=== PATIENT | female | born 2000 | race American Indian/Alaskan Native ===

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

== ENCOUNTER 2019-01-05 20:38 | Emergency (ER) | payer OTHER ==
[2019-01-05 21:01] VITALS: BP 115/70; PULSE 80; TEMP 98.2; BMI 24.5
--- NOTE | 2019-01-05 21:40 | PDOC ---
History of Present Illness - General Chief Complaint: Cold Symptoms Stated Complaint: CHEST PAIN Time Seen by Provider: 01/05/19 21:34 - History of Present Illness Initial Comments: 01/05/19 21:38 [id number] female with cough 2 weeks without systemic symptoms she has a mild sore throat. Mild sore throat x 2 weeks Past History - Past Medical History Allergies/Adverse Reactions: Allergies Allergy/AdvReac Type Severity Reaction Status Date / Time No Known Allergies Allergy Verified 01/31/17 18:04 Home Medications: Ambulatory Orders Guaifenesin Dm [Mucinex Dm -] 1 tab PO BID #60 tab.[id number] 01/05/19 Anemia: No Asthma: No Cardiac Disorders: No COPD: No - Surgical History Abdominal Surgery: No Appendectomy: No Cholecystectomy: No Gastric Stapling: No GI Surgery: No - Reproductive History Therapeutic (s) & number: Yes (OCT 18, 2017) - Immunization History Immunization Up to Date: Yes - Suicide/Smoking/Psychosocial Hx Smoking Status: No Smoking History: Current every day smoker Have you smoked in the past 12 months: Yes Number of Cigarettes Smoked Daily: 4 Information on smoking cessation initiated: Yes 'Breaking Loose' booklet given: 11/30/17 Hx Alcohol Use: No Drug/Substance Use Hx: No Substance Use Type: None Review of Systems - Review of Systems Constitutional: No: Chills, Diaphoresis, Fever, Malaise, Night Sweats HEENTM: Yes: Throat Pain. No: Difficulty Swallowing Respiratory: Yes: Cough *Physical Exam - Vital Signs Last Vital Signs Temp Pulse Resp BP Pulse Ox 98.2 F 80 20 115/70 99 01/05/19 20:59 01/05/19 20:59 01/05/19 20:59 01/05/19 20:59 01/05/19 20:59 - Physical Exam Comments: 01/05/19 21:39 HEAD: NC/AT EYES: Conjuntiva clear Ears: Canals and TM's normal NOSE: No d/c THROAT: Moist mucous membrances, oral pharanx clear, uvula midline NECK: Supple without adenopathy CARDIAC: S1 S2 LUNGS: CTA Full and Equal breath sounds ABDOMEN: Soft NT ND MS: Full ROM in all joints without edema NEUROLOGIC: No gross sensory or motor deficits, NVID SKIN: Normal color and temperature no lesions or rashes Moderate Sedation - Procedure Monitoring Vital Signs: Procedure Monitoring Vital Signs Temperature 98.2 F 01/05/19 20:59 Pulse Rate 80 01/05/19 20:59 Respiratory Rate 20 01/05/19 20:59 Blood Pressure 115/70 01/05/19 20:59 O2 Sat by Pulse Oximetry (%) 99 01/05/19 20:59 *DC/Admit/Observation/Transfer Diagnosis at time of Disposition: Viral upper respiratory infection - Discharge Dispostion Disposition: HOME Condition at time of disposition: Stable Decision to Admit order: No - Referrals Referrals: King Francis MD [Primary Care Provider] - - Patient Instructions Printed Discharge Instructions: DI for Viral Upper Respiratory Infection -- Adult Additional Instructions: He may take Mucinex DM as directed. Follow-up your primary care physician in one to 2 days for further evaluation and treatment options and return to the emergency room should symptoms worsen or go unresolved. - Post Discharge Activity
== END 2019-01-05 21:56 | disposition home or self-care (01) ==
LOC: JERFT 20:38
DX: J06.9 Acute upper respiratory infection, unspecified (principal); B97.89 Other viral agents as the cause of diseases classified elsewhere
CPT/HCPCS: 99281-25

== ENCOUNTER 2019-05-02 18:40 | Emergency (ER) | payer OTHER ==
[2019-05-02 18:57] VITALS: BP 118/72; PULSE 92; TEMP 97.8; BMI 24.3
[2019-05-02] MEDS ORDERED: CEPHALEXIN MONOHYDRATE 500 MG CAPSULE (UD) PO ONE (19:38)
[2019-05-02] MEDS ORDERED: CEPHALEXIN MONOHYDRATE 500 MG CAPSULE (UD) ONE (19:39)
--- NOTE | 2019-05-03 02:32 | PDOC ---
Documentation entered by Hany Suárez SCRIBE, acting as scribe for Deepthi Estrada MD. Deepthi Estrada MD: This documentation has been prepared by the Jose Armando sotomayor Aiswarya, SCRIBE, under my direction and personally reviewed by me in its entirety. I confirm that the documentation accurately reflects all work, treatment, procedures, and medical decision making performed by me. History of Present Illness - General Chief Complaint: Wound Stated Complaint: RT LEG WOUND History Source: Patient Exam Limitations: No Limitations - History of Present Illness Initial Comments: 05/02/19 19:50 The patient is a 18 year old female, with no significant PMH, who presents to the emergency department with a right leg skin infection that began a week ago. Patient states symptoms began with a boil located to the right anterior upper medial thigh, surrounded by approximately 8 cm x 7 cm erythema. Patient states she popped the boil yesterday and reports there was an adequate amount of blood and pus. Patient currently reports pain and increased redness to the site of infection, no relief with Tylenol. The patient denies any numbness or tingling. Denies chest pain, shortness of breath, headache and dizziness.Denies fever, chills, nausea, vomiting, diarrhea and constipation.Denies dysuria, frequency, urgency and hematuria. Allergies: NKDA Past surgical history: None reported Social history: None reported PCP: None reported Past History - Past Medical History Allergies/Adverse Reactions: Allergies Allergy/AdvReac Type Severity Reaction Status Date / Time No Known Allergies Allergy Verified 05/02/19 18:41 Home Medications: Ambulatory Orders Acetaminophen 325 mg PO ONCE 05/02/19 Cephalexin Monohydrate [Keflex -] 500 mg PO Q8H #15 capsule 05/02/19 Anemia: No Asthma: No Cardiac Disorders: No COPD: No - Surgical History Abdominal Surgery: No Appendectomy: No Cholecystectomy: No Gastric Stapling: No GI Surgery: No - Reproductive History Therapeutic (s) & number: Yes (OCT 18, 2017) - Immunization History Immunization Up to Date: Yes - Suicide/Smoking/Psychosocial Hx Smoking Status: No Smoking History: Never smoked Have you smoked in the past 12 months: No Number of Cigarettes Smoked Daily: 4 Information on smoking cessation initiated: No 'Breaking Loose' booklet given: 11/30/17 Hx Alcohol Use: No Drug/Substance Use Hx: No Substance Use Type: None Review of Systems - Review of Systems Able to Perform ROS?: Yes Comments:: 05/02/19 19:51 GENERAL/CONSTITUTIONAL: No fever or chills. No weakness. HEAD, EYES, EARS, NOSE AND THROAT: No change in vision. No ear pain or discharge. No sore throat. MUSCULOSKELETAL: No joint or muscle swelling or pain. No neck or back pain. SKIN: +Right leg rash NEUROLOGIC: No headache, vertigo, loss of consciousness, or change in strength/ sensation. ENDOCRINE: No increased thirst. No abnormal weight change. HEMATOLOGIC/LYMPHATIC: No anemia, easy bleeding, or history of blood clots. ALLERGIC/IMMUNOLOGIC: No hives or skin allergy. *Physical Exam - Vital Signs Last Vital Signs Temp Pulse Resp BP Pulse Ox 97.8 F 92 H 20 118/72 100 05/02/19 18:41 05/02/19 18:41 05/02/19 18:41 05/02/19 18:41 05/02/19 18:41 - Physical Exam Comments: 05/02/19 19:50 GENERAL: Awake, alert, and fully oriented, in no acute distress HEAD: No signs of trauma EYES: PERRLA, EOMI, sclera anicteric, conjunctiva clear EXTREMITIES: Normal range of motion, no edema. No clubbing or cyanosis. No cords, erythema, or tenderness NEUROLOGICAL: Cranial nerves II through XII grossly intact. Normal speech. SKIN: +Right anterior proximal surface 8 cm x 7cm erythematous area with 2 millimeter central shallow ulcer surrounded by half cm diameter area of mild induration. No fluctuance. No palpable inguinal lymphadenopathy. No other signs of skin lesion.Warm, Dry, normal turgor, no rashes or lesions noted. Medical Decision Making - Medical Decision Making As noted above, this 18-year-old woman with no chronic medical problems presents with a few day history of erythematous, mildly painful area around previous pustule proximal right anterior thigh that the patient self drained. She is no complaints consistent with systemic infectious process. Exam is noted with shallow ulcer surrounded by [place] of induration and a larger area of erythema. There is no fluctuance consistent with drainable abscess; there is no lymphangitic streaking.There is no discharge/pus for wound culture. Clinical presentation consistent with mild cellulitis around an infected folliculitis(patient shaves hair in the area of the infection). Patient has no history of resistant organism colonization or infection and is not in the high risk group for these organisms. The patient was started on Keflex 500 mg 3 times a day for one week. She should return if she has signs of worsening local infection or fever. *DC/Admit/Observation/Transfer Diagnosis at time of Disposition: Cellulitis Qualifiers: Site of cellulitis: extremity Site of cellulitis of extremity: lower extremity Laterality: right Qualified Code(s): L03.115 - Cellulitis of right lower limb - Discharge Dispostion Disposition: HOME Condition at time of disposition: Good - Prescriptions Prescriptions: Cephalexin Monohydrate [Keflex -] 500 mg PO Q8H #15 capsule - Referrals - Patient Instructions Printed Discharge Instructions: Cellulitis Additional Instructions: Keflex 500 mg 3 times a day for 5 days Warm compresses to the wound at least 3 times daily Continue Tylenol (acetaminophen) as needed for pain Return to ER or see your doctor if area becomes more painful/swollen or if red area increases in size Also return to ER if you see any red streaking up your leg or you develop fever/ chills Follow-up with your doctor within the next 3-4 days - Post Discharge Activity
== END 2019-05-02 19:46 | disposition home or self-care (01) ==
LOC: FER 18:40
DX: L03.115 Cellulitis of right lower limb (principal)
CPT/HCPCS: 99282-25

== ENCOUNTER 2019-05-21 10:54 | Emergency (ER) | payer OTHER ==
[2019-05-21 11:00] VITALS: BMI 23.6
[2019-05-21 11:02] VITALS: BP 123/73; PULSE 70; TEMP 98.5
[2019-05-21] MEDS ORDERED: CEPHALEXIN MONOHYDRATE 500 MG CAPSULE (UD) PO ONE (11:03)
[2019-05-21] MEDS ORDERED: CEPHALEXIN MONOHYDRATE 500 MG CAPSULE (UD) ONE (11:04)
--- NOTE | 2019-05-21 11:05 | PDOC ---
History of Present Illness - General Chief Complaint: Pain, Acute Stated Complaint: RIGHT LEG REDNESS Time Seen by Provider: 05/21/19 10:57 History Source: Patient Exam Limitations: No Limitations - History of Present Illness Initial Comments: 05/21/19 10:59 18 y/o female with lesion on right leg for 2 days, red and getting worse. More painful. Had this once before. Shaves legs. No fall or trauma. No fever or chills. Patient states taht she picked her leg when she saw a white spot. Location: reports: extremities Past History - Past Medical History Allergies/Adverse Reactions: Allergies Allergy/AdvReac Type Severity Reaction Status Date / Time No Known Allergies Allergy Verified 05/21/19 10:55 Home Medications: Ambulatory Orders Cephalexin Monohydrate [Keflex -] 500 mg PO Q8H #15 capsule 05/21/19 Anemia: No Asthma: No Cardiac Disorders: No COPD: No - Surgical History Abdominal Surgery: No Appendectomy: No Cholecystectomy: No Gastric Stapling: No GI Surgery: No - Reproductive History Therapeutic (s) & number: Yes (OCT 18, 2017) - Immunization History Immunization Up to Date: Yes - Suicide/Smoking/Psychosocial Hx Smoking Status: No Smoking History: Never smoked Have you smoked in the past 12 months: No Number of Cigarettes Smoked Daily: 4 'Breaking Loose' booklet given: 11/30/17 Hx Alcohol Use: No Drug/Substance Use Hx: No Substance Use Type: None Review of Systems - Review of Systems Able to Perform ROS?: Yes Is the patient limited Japanese proficient: No Constitutional: No: Chills, Fever Respiratory: No: Cough, Shortness of Breath Cardiac (ROS): No: Chest Pain, Edema Musculoskeletal: No: Joint Pain, Muscle Pain Integumentary: Yes: Lumps All Other Systems: Reviewed and Negative *Physical Exam - Physical Exam General Appearance: Yes: Nourished, Appropriately Dressed. No: Apparent Distress HEENT: positive: EOMI, JOHNIE, Normal ENT Inspection, Normal Voice, Pharynx Normal Neck: positive: Trachea midline, Normal Thyroid, Supple. negative: Tender, Rigid Respiratory/Chest: positive: Lungs Clear, Normal Breath Sounds. negative: Chest Tender, Respiratory Distress Cardiovascular: positive: Regular Rhythm, Regular Rate, S1, S2. negative: Edema , JVD, Murmur Vascular Pulses: Femoral (R): 4+, Femoral (L): 4+, Carotid (R): 4+, Carotid (L) : 4+, Dorsalis-Pedis (R): 4+, Doralis-Pedis (L): 4+ Gastrointestinal/Abdominal: positive: Normal Bowel Sounds, Flat, Soft. negative : Tender, Organomegaly Lymphatic: negative: Adenopathy, Tenderness, Other Musculoskeletal: positive: Normal Inspection. negative: CVA Tenderness Extremity: positive: Normal Capillary Refill, Normal Range of Motion. 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 NML intact, Fully Oriented, Alert, Normal Mood/ Affect, Normal Response Progress Note - Progress Note Progress Note: Patient with red area on right leg, appears to be early cellulitis No DVT Will treat with Keflex Pt in agreement with plan *DC/Admit/Observation/Transfer Diagnosis at time of Disposition: Cellulitis Qualifiers: Site of cellulitis: extremity Site of cellulitis of extremity: lower extremity Laterality: right Qualified Code(s): L03.115 - Cellulitis of right lower limb - Discharge Dispostion Disposition: HOME Condition at time of disposition: Stable Decision to Admit order: No - Referrals - Patient Instructions Printed Discharge Instructions: DI for Cellulitis -- Adult Additional Instructions: Apply warm compress to lesion 3-4x/day for 10-15 minutes Motrin, rest Keflex 500mg 3x/day for 5 days If worsen return to ER - Post Discharge Activity
== END 2019-05-21 11:24 | disposition home or self-care (01) ==
LOC: FER 10:54
DX: L03.115 Cellulitis of right lower limb (principal)
CPT/HCPCS: 99281-25

== ENCOUNTER 2019-09-29 20:19 | Emergency (ER) | payer OTHER ==
[2019-09-29 20:26] VITALS: BP 111/63; PULSE 83; TEMP 98.3; BMI 25.7
[2019-09-29] MEDS ORDERED: SULFAMETHOXAZOLE/TRIMETHOPRIM 800MG/160MG D.S. TABLET PO ONE (20:35)
[2019-09-29] MEDS ORDERED: SULFAMETHOXAZOLE/TRIMETHOPRIM 800MG/160MG D.S. TABLET ONE (20:37)
--- NOTE | 2019-09-29 22:00 | PDOC ---
Documentation entered by Therese Mendoza SCRIBE, acting as scribe for Joel Muhammad MD. Joel Muhammad MD: This documentation has been prepared by the Reji sotomayor Adrianna, SCRIBE, under my direction and personally reviewed by me in its entirety. I confirm that the documentation accurately reflects all work, treatment, procedures, and medical decision making performed by me. History of Present Illness - General Chief Complaint: Pain, Acute Stated Complaint: BURN RIGHT FOREARM 3 DAYS AGO History Source: Patient Exam Limitations: No Limitations - History of Present Illness Initial Comments: HPI: The patient is a 19 year old female, with no significant PMH, who presents to the ED for evaluation of a burn for 3 days. Patient notes she burned her right forearm 3 days ago. She endorses some pain to the burn, and notes she developed surrounding erythema. Patient was concerned for an infection, especially since part of her scab came off as it got stuck to her clothing. Denies any other acute complaints at this time, and has not applied any topicals to the burn. PAST MEDICAL HISTORY: no significant history PAST SURGICAL HISTORY: no significant history FAMILY HISTORY: no pertinent history SOCIAL HISTORY: Pt lives with family and is employed. MEDICATIONS: reviewed ALLERGIES: As per nursing notes Adult ROS General: No fevers or chills, no weakness, no weight loss HEENT: No change in vision. No sore throat,. No ear pain CardioVascular: No chest pain or shortness of breath Respiratory:No cough, or wheezing. Gastrointestinal: no nausea, vomiting, diarrhea or constipation, No rectal bleeding Genitourinary: No dysuria, hematuria, or frequency Musculoskeletal: No joint or muscle pain or swelling Neurologic: No headache, vertigo, dizziness or loss of consciousness Psychiatric: nor depression Skin: +Right forearm burn that is tender to touch with surrounding erythema. No rashes or easy bruising. Endocrine: no increased thirst or abnormal weight change Allergic: no skin or latex allergy All other systems reviewed and normal Adult Physical Exam GENERAL: The patient is awake, alert, and fully oriented, in no acute distress. HEAD: Normal with no signs of trauma. EYES: Pupils equal, round and reactive to light, extraocular movements intact, sclera anicteric, conjunctiva clear. EXTREMITIES: Normal range of motion, no edema. NEUROLOGICAL: Normal speech, normal gait. PSYCH: Normal mood, normal affect. SKIN: +Approximately 3cm circular second degree burn to the mid-right forearm with a small area where the skin has been removed. +Mild tenderness on palpation. +There is a larger associated area, approximately 6cm diameter with very pale erythema, ?early cellulitis. No purulence or discharge from the burn. Warm, Dry, normal turgor, no rashes noted. Assessment and plan: This is a 19-year-old female who burned her arm approximately 3 days ago. Patient has a small second-degree burn with a first- degree component to it. Burn has some surrounding area of very mild erythema that could be secondary to a very early infection. Patient will be started on an antibiotic and her scription sent to her pharmacy for 7 days. Patient given Bactrim 09/29/19 20:39 Past History - Past Medical History Allergies/Adverse Reactions: Allergies Allergy/AdvReac Type Severity Reaction Status Date / Time No Known Allergies Allergy Verified 09/29/19 20:21 Home Medications: Ambulatory Orders Sulfamethoxazole/Trimethoprim [Bactrim Ds -] 1 tab PO BID #14 tablet 09/29/19 Anemia: No Asthma: No Cardiac Disorders: No COPD: No - Surgical History Abdominal Surgery: No Appendectomy: No Cholecystectomy: No Gastric Stapling: No GI Surgery: No - Reproductive History Therapeutic (s) & number: Yes (OCT 18, 2017) - Immunization History Immunization Up to Date: Yes - Psycho Social/Smoking Cessation Hx Smoking Status: No Smoking History: Current every day smoker Have you smoked in the past 12 months: No Number of Cigarettes Smoked Daily: 1 'Breaking Loose' booklet given: 05/21/19 Hx Alcohol Use: No Drug/Substance Use Hx: No Substance Use Type: None *Physical Exam - Vital Signs Last Vital Signs Temp Pulse Resp BP Pulse Ox 98.3 F 83 16 111/63 98 09/29/19 20:23 09/29/19 20:23 09/29/19 20:23 09/29/19 20:23 09/29/19 20:23 Discharge - Discharge Information Problems reviewed: Yes Clinical Impression/Diagnosis: Burn of right arm Qualifiers: Upper extremity location: forearm Burn degree: partial thickness (2nd degree) Condition: Stable Disposition: HOME - Admission No - Additional Discharge Information Prescriptions: Sulfamethoxazole/Trimethoprim [Bactrim Ds -] 1 tab PO BID #14 tablet - Follow up/Referral - Patient Discharge Instructions Additional Instructions: Was an antibiotic on the burn and to keep it covered when you are wearing a long sleeve so that it does not get stuck on the burn. Take Bactrim 1 tablet twice a day for 7 days to prevent infection. Return to the emergency department immediately with ANY new, persistent or worsening symptoms. Continue any medications as previously prescribed by your physician. You should follow up with your primary doctor as soon as possible regarding today's emergency department visit. . Please make sure your doctor reviews the results of your emergency evaluation. Thank you for coming to the Emergency Department today for your care. It was a pleasure to see you today. Please note that your evaluation is INCOMPLETE until you follow-up with your doctor. - Post Discharge Activity
== END 2019-09-29 20:44 | disposition home or self-care (01) ==
LOC: FER 20:19
DX: F17.210 Nicotine dependence, cigarettes, uncomplicated (principal); T22.211A Burn of second degree of right forearm, initial encounter; T31.0 Burns involving less than 10% of body surface; X08.8XXA Exposure to other specified smoke, fire and flames, initial encounter; Y93.9 Activity, unspecified; Y92.9 Unspecified place or not applicable
CPT/HCPCS: 99281-25

== ENCOUNTER 2020-06-06 13:16 | Emergency (ER) | payer OTHER ==
[2020-06-06 13:24] VITALS: BP 134/66; PULSE 98; BMI 27.9
--- NOTE | 2020-06-06 13:25 | PDOC ---
Rapid Medical Evaluation Medical Evaluation: Allergies Allergy/AdvReac Type Severity Reaction Status Date / Time No Known Allergies Allergy Verified 09/29/19 20:21 06/06/20 13:18 19 yo F G0 h/o hirsutism, started new control 6 weeks ago and spironolactone 4 weeks ago c/o pelvic cramps 1 week, LMP 04/28/20. took 3 home tests at day 5, 7 and 8th day of being late, all were negative. denies f/c, vaginal bleeding, vaginal discharge, f/c, urinary complaints, low back pain or any other complaints. VSS well appearing A/P: Pelvic Pain bhcg ua labs
[2020-06-06 13:26] VITALS: TEMP 98.2
--- NOTE | 2020-06-06 14:04 | PDOC ---
History of Present Illness - General Chief Complaint: Amenorrhea Stated Complaint: ABD PAIN Time Seen by Provider: 06/06/20 13:37 History Source: Patient Exam Limitations: Clinical Condition - History of Present Illness Initial Comments: 06/06/20 14:04 Patient with no significant past medical history present for evaluation of delayed menstrual period. Patient reported her menstrual period is 10 days late which is unusual for her. Patient was started on OCP 6 weeks ago by G[facility]. Reported last menstrual period was April 27. Denies vaginal bleeding, abdominal pain, fever, chills, dysuria, chest pain. Patient report taking 3 [id number] urine test with negative results. Denies any other symptoms Is this a multiple visit Asthma Patient?: No Past History - Medical History Allergies/Adverse Reactions: Allergies Allergy/AdvReac Type Severity Reaction Status Date / Time No Known Allergies Allergy Verified 06/06/20 13:24 Home Medications: Ambulatory Orders Cephalexin Monohydrate [Keflex -] 500 mg PO Q8H #21 capsule 09/30/19 Anemia: No Asthma: No Cardiac Disorders: No COPD: No - Surgical History Abdominal Surgery: No Appendectomy: No Cholecystectomy: No Gastric Stapling: No GI Surgery: No - Reproductive History Therapeutic (s) & number: Yes (OCT 18, 2017) - Immunization History Immunization Up to Date: Yes - Psycho-Social/Smoking History Smoking Status: No Smoking History: Never smoked Have you smoked in the past 12 months: No Number of Cigarettes Smoked Daily: 1 Information on smoking cessation initiated: No 'Breaking Loose' booklet given: 05/21/19 - Substance Abuse Hx (Audit-C & DAST Scrn) How often the patient has a drink containing alcohol: Never Score: In Men: 4 or > Positive; In Women: 3 or > Positive: 0 Screen Result (Pos requires Nsg. Audit-10AR): Negative In the last yr the pt used illegal drug/Rx for NonMed reason: No Score: Yes response is considered Positive: 0 Screen Result (Positive result requires Nsg. DAST-10): Negative Review of Systems - Review of Systems Able to Perform ROS?: Yes Is the patient limited [place] proficient: No Constitutional: No: Chills, Fever, Malaise HEENTM: No: Symptoms Reported, See HPI, Eye Pain, Blurred Vision, Tearing, Recent change in vision, Double Vision, Cataracts, Ear Pain, Ocular Prothesis, Ear Discharge, Nose Pain, Nose Congestion, Tinnitus, Nose Bleeding, Hearing Loss, Throat Pain, Throat Swelling, Mouth Pain, Dental Problems, Difficulty Swallowing, Mouth Swelling, Other Respiratory: No: Symptoms reported, See HPI, Cough, Orthopnea, Shortness of Breath, SOB with Exertion, SOB at Rest, Stridor, Wheezing, Productive cough, Hem optysis, Other Cardiac (ROS): No: Symptoms Reported ABD/GI: No: Symptoms Reported, Nausea, Vomiting, Abdominal cramping : No: Symptoms Reported, See HPI, Dysuria, Discharge, Frequency, Urgency Musculoskeletal: No: Symptoms Reported All Other Systems: Reviewed and Negative *Physical Exam - Vital Signs Last Vital Signs Temp Pulse Resp BP Pulse Ox 98.2 F 98 H 17 134/66 98 06/06/20 13:18 06/06/20 13:18 06/06/20 13:18 06/06/20 13:18 06/06/20 13:18 - Physical Exam General Appearance: Yes: Nourished, Appropriately Dressed. No: Apparent Distres s HEENT: positive: Normal ENT Inspection Neck: negative: Supple Respiratory/Chest: positive: Lungs Clear, Normal Breath Sounds. negative: Chest Tender, Respiratory Distress, Accessory Muscle Use Cardiovascular: positive: Regular Rhythm, Regular Rate Gastrointestinal/Abdominal: positive: Normal Bowel Sounds, Flat, Soft. negative: Tender, Organomegaly Musculoskeletal: positive: Normal Inspection Extremity: positive: Normal Capillary Refill, Normal Inspection, Normal Range of Motion Integumentary: positive: Normal Color Neurologic: positive: Fully Oriented, Alert, Normal Mood/Affect, Normal Response, Motor Strength 5/5 ED Treatment Course - ADDITIONAL ORDERS Additional order review: Laboratory Results 06/06/20 13:33 Serum , Qual Negative Medical Decision Making - Medical Decision Making 06/06/20 14:05 Patient with no significant past medical history present for evaluation of delayed menstrual period. Patient reported her menstrual period is 10 days late which is unusual for her. Patient was started on OCP 6 weeks ago by [facility]. Reported last menstrual period was April 27. Denies vaginal bleeding, abdominal pain, fever, chills, dysuria, chest pain. Patient report taking 3 [id number] urine test with negative results. Denies any other symptoms Clinical exam unremarkable. Serum test is negative. Patient amenorrhea likely caused by hormonal from OCP. Patient advised to follow-up in 1 week for repeat test and [facility] follow-up for reevaluation of her OCP if persistent amenorrhea and for work-up of amenorrhea by G[employer]ER. Patient voiced understanding patient stable for discharge Discharge - Discharge Information Problems reviewed: Yes Clinical Impression/Diagnosis: Amenorrhea due to oral contraceptive, test negative Condition: Stable Disposition: HOME - Admission No - Follow up/Referral Referrals: Federico Judge MD [Primary Care Provider] - - Patient Discharge Instructions Patient Printed Discharge Instructions: DI for Amenorrhea Additional Instructions: Your blood test is negative. Your delay in menstrual period is likely caused by your control. Follow-up with your GANG WORKER in about a week for repeat test or do [id number] test and make a follow-up appoint with your GANG WORKER - Post Discharge Activity
== END 2020-06-06 14:11 | disposition home or self-care (01) ==
LOC: JERFT 13:16
DX: N91.2 Amenorrhea, unspecified (principal)
CPT/HCPCS: 36415; 84702; 84703; 99283-25